=== PATIENT | male | born 1975 | race Caucasian/White ===

== ENCOUNTER 2016-10-20 10:41 | Emergency (ER) | payer SELFPAY ==
[~2016-10-20] VITALS: Ht 175.3 cm; Wt 90.0 kg
[~2016-10-20 10:41] MED LIST: CELE10TA PO; CYCL5TAB PO; LISI10TA3 PO
[2016-10-20 10:43] VITALS: BP 157/105; PULSE 97; RESP 16; TEMP 98.8; O2SAT 95
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
[2016-11-06] MEDS ORDERED: AMLO5 PO (14:34)
[2016-11-06] MEDS ORDERED: ALPR1TAB3 PO (14:34)
== END 2016-10-20 11:19 | disposition left against medical advice (07) ==
LOC: NEPB 10:41
DX: Z51.89 Encounter for other specified aftercare (principal)
CPT/HCPCS: 99281

== ENCOUNTER → 2016-10-29 | Outpatient (CLI) | payer SELFPAY ==
[~2016-10-29] MED LIST changes: +ALPR1TAB3 PO; +AMLO5 PO
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
== END ==
LOC: HRAD 07:34
PROVIDERS: ATTEND Neurological Surgery
DX: S12.9XXA Fracture of neck, unspecified, initial encounter (principal); X58.XXXA Exposure to other specified factors, initial encounter
CPT/HCPCS: 72040

== ENCOUNTER → 2016-11-08 | Outpatient (CLI) | payer SELFPAY ==
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
== END ==
LOC: HRAD 07:39
PROVIDERS: ATTEND Neurological Surgery
DX: M54.2 Cervicalgia (principal); V29.88XA Motorcycle rider (driver) (passenger) injured in other specified transport accidents, initial encounter
CPT/HCPCS: 72040